=== PATIENT | female | born 1980 | race African-American/Black ===

== ENCOUNTER → 2023-11-10 07:07 | Outpatient (REF) | payer BC, SELFPAY | LOC: HWWDC 07:07 | PROVIDERS: ATTENDING PHYSICIAN Nurse Practitioner | DX: Z12.31 Encounter for screening mammogram for malignant neoplasm of breast (principal) | CPT/HCPCS: 77063; 77067 ==

== ENCOUNTER → 2024-06-16 09:40 | Outpatient (REF) | payer BC, SELFPAY | LOC: WDC 09:40 | PROVIDERS: ATTENDING PHYSICIAN Nurse Practitioner | DX: R92.333 Mammographic heterogeneous density, bilateral breasts (principal) | CPT/HCPCS: 76641 ==

== ENCOUNTER → 2025-01-04 16:24 | Outpatient (REF) | payer BC, SELFPAY | LOC: HWRAD 16:24 | PROVIDERS: ATTENDING PHYSICIAN Nurse Practitioner Family | DX: M25.551 Pain in right hip (principal) | CPT/HCPCS: 73502 ==

== ENCOUNTER → 2025-06-18 18:48 | Outpatient (REF) | payer BC, SELFPAY | LOC: MRI 18:48 | PROVIDERS: ATTENDING PHYSICIAN Internal Medicine | DX: R41.3 Other amnesia (principal); R41.89 Other symptoms and signs involving cognitive functions and awareness | CPT/HCPCS: 70553; A9575 ==

== ENCOUNTER → 2025-06-20 17:26 | Outpatient (REF) | payer BC, SELFPAY | LOC: MRI 17:26 | PROVIDERS: ATTENDING PHYSICIAN Internal Medicine | DX: R41.3 Other amnesia (principal); R41.89 Other symptoms and signs involving cognitive functions and awareness | CPT/HCPCS: 72156; A9575 ==